=== PATIENT | male | born 1990 | race Hispanic/Latino ===

== ENCOUNTER 2022-10-28 03:21 | Emergency (ER) | payer SELFPAY ==
[~2022-10-28] VITALS: Ht 167.6 cm; Wt 95.3 kg
[2022-10-28 03:22] VITALS: BP 148/78
== END 2022-10-28 06:05 | disposition left against medical advice (07) ==
LOC: EDH 03:21
DX: M79.646 Pain in unspecified finger(s) (principal); Z53.21 Procedure and treatment not carried out due to patient leaving prior to being seen by health care provider
CPT/HCPCS: 99281